=== PATIENT | female | born 1985 | race Caucasian/White ===

== ENCOUNTER → 2017-02-16 16:55 | Outpatient (REF) | payer BC, SELFPAY | LOC: LAB 16:55 | PROVIDERS: Visit Provider Nurse Practitioner Obstetrics & Gynecology | DX: Z34.90 Encounter for supervision of normal pregnancy, unspecified, unspecified trimester (principal) | CPT/HCPCS: 86403 ==

== ENCOUNTER 2017-03-18 03:47 | Inpatient (IN) | payer BC, SELFPAY ==
[2017-03-18 03:15] VITALS: BP 128/85; PULSE 70; RESP 17; TEMP 36.7; O2SAT 97; BMI 24.1
--- NOTE | 2017-03-18 04:00 | US_ITS ---
US OB limited position COMPARISON: Ultrasound complete 11/02/2016 HISTORY: 39 weeks gestation with vaginal bleeding TECHNIQUE: Ultrasound examination for position FINDINGS: The fetus is in cephalic presentation. The heart rate is 146 bpm. The placenta is fundal. With scattered placental calcification is noted. A three-vessel cord is identified. Note age measurements were obtained. The cervix is not well seen but appears be closed. IMPRESSION: Cephalic position as noted
[2017-03-18 04:16] LABS: Microscopic, Urine URINE MICROSCOPIC (MICROSCOPIC)
[2017-03-18 04:16] LABS: Basophils % 0.2 % (0.1-2.0); Eosinophils # 0.1 K/mm3 (0.0-0.4); Eosinophils % 1.4 % (0.1-12.0); Hematocrit 39.3 % (37.0-47.0); Hemoglobin 12.8 g/dL (12.2-16.2); Lymphocytes # 2.1 K/mm3 (0.7-4.5); Lymphocytes % 36.3 K/mm3 (10-50); Mean Corpuscular HGB Conc 32.7 g/dL (31.8-35.4); Mean Corpuscular Hemoglobin 32.8 pg (27.0-31.2); Mean Corpuscular Volume 100.2 fl (81-99); Mean Platelet Volume 9.9 fl (7.4-10.4); Monocytes # 0.3 K/mm3 (0.1-1.0); Neutrophils # 3.2 K/mm3 (1.8-7.8); Neutrophils % 56.1 % (37.0-80.0); Platelet Count 142 K/mm3 (142-424); Red Blood Count 3.92 M/mm3 (4.20-5.40); Red Cell Distribution Width 12.8 % (11.5-17.5); White Blood Count 5.8 K/mm3 (4.8-10.8)
[2017-03-18 04:22] LABS: Appearance,Urine CLEAR (Clear); Bilirubin,Urine Negative (Negative); Blood, Urine 3+ (Negative); Color,Urine YELLOW (Yellow); Glucose,Urine (UA) Negative (Negative); Ketones,Urine Negative (Negative); Leukocyte Esterase,Urine Negative (Negative); Nitrate,Urine Negative (Negative); PH,Urine 6.5 (5.0-8.5); Protein,Urine Negative (Negative); Specific Gravity, Urine 1.015 (1.005-1.030); Urobilinogen,Urine 0.2 EU/dl (0.2)
[2017-03-18 04:23] LABS: RBC,Urine 20-50 #/hpf (0-3)
[2017-03-18 07:30] VITALS: BP 112/65; PULSE 56; RESP 16; TEMP 36.5; O2SAT 99
--- NOTE | 2017-03-18 09:16 | P.HP_ITS ---
OB - H&P: HPI Antepartum - History of Present Illness Chief complaint: Occasional contractions and vaginal bleeding - History of Present Criteria for establishing EDC:: LMP confirmed by 1st trimester US care: good care Ultrasounds: normal 1st trimester US, normal mid trimester US Obstetrical complications: none Planning to breastfeed?: Yes - Labs Blood type: A (+) positive Rubella: immune RPR/VDRL: nonreactive GBS status: negative [facility]H History I have reviewed the patient's past medical history: Yes Other Medical History: Reports: Thyroid Disease Other Surgeries: Yes: No Previous Surgery Amputation: No Fractures: No - *Social History Smoking Status: Never smoker Alcohol Intake: never Substance Use Type: denies use *Family Hx:: Unable to obtain, Cancer, Diabetes, Hypertension, Hyperlipidemia, Asthma, Stroke : 3 Para: 2 Review of Systems - Review of Systems Review of systems:: pertinent systems reviewed and negative unless documented below Meds Home Medications Medication Instructions Recorded Confirmed Type docusate sodium 100 mg capsule 100 mg PO QDAY 02/22/17 History ferrous sulfate 325 mg (65 mg 325 mg PO ONCE tab 02/22/17 History iron) tablet levothyroxine 88 mcg tablet 88 mcg PO ONCE tab 02/22/17 History vit no.95-ferrous tab PO 02/22/17 History fumarate 28 mg-folic acid 800 mcg tablet Allergies Allergy/AdvReac Type Severity Reaction Status Date / Time No Known Allergies Allergy Unverified 03/14/17 15:59 OB - H&P: Exam - Physical Exam Vital signs: Temp Pulse Resp BP Pulse Ox 98.0 F 70 17 128/85 97 03/18/17 03:15 03/18/17 03:15 03/18/17 03:15 03/18/17 03:15 03/18/17 03:15 - Constitutional no acute distress OB - Results - Labs Labs: Short CBC 03/18/17 Range/Units 03:55 WBC 5.8 (4.8-10.8) K/mm3 Hgb 12.8 (12.2-16.2) g/dL Hct 39.3 (37.0-47.0) % Plt Count 142 (142-424) K/mm3 Urine 03/18/17 Range/Units 03:30 Urine Color Yellow (Yellow) Urine Appearance Clear (Clear) Urine pH 6.5 (5.0-8.5) Ur Specific [place] 1.015 (1.005-1.030) Urine Protein Negative (Negative) Urine Glucose (UA) Negative (Negative) OB - A/P Antepartum - Additional Plan Plan: expectant management (She had some bleeding at home this morning and we will go ahead and augment her labor.), induction Planning to breastfeed?: Yes
--- NOTE | 2017-03-18 09:22 | P.PN_ITS ---
[facility] Anesthesia Checklist - Patient Identification Patient Identification: Arm Band, Verbal (Name & ) - Structural Data Admitted From: Inpatient Planned Operative Procedure/s: labour epidural Consent for Planned Operative Procedure(s) Verified: Yes Verified Documents: Surgical Consent - NPO Status Verified Time NPO: 00:00 - Chart Verification Results Verified: CBC, BMP - Additional verifications Patient : Yes Anesthesia Reactions: No Hx Blood Transfusions: No Blood Transfusion Reaction: No Cephalosporin Allergy: No Previous Colonoscopy: No - Cardiovascular Assessment Heart Sounds: S1 & S2 Pulse Strength: Baseline Pulse Rhythm: Regular Peripheral Edema: No - Airway Assessment C-Spine Mobility Assessed: Yes TMJ Mobility Assessed: Yes Dentition: Good Dentition - Neurological Assessment Level of Consciousness: Awake, Alert, Appropriate Hx Seizures: No Numbness or tingling in extremities: No - Anesthesia Plan Anesthesia Risk discussed: Yes Anesthesia Plan: Verified ASA Class: II Anesthesia Type: Epidural [facility] Anesthesia HX I have reviewed the patient's past medical history: Yes Other Medical History: Reports: Thyroid Disease Other Surgeries: Yes: No Previous Surgery Amputation: No Fractures: No *Family Hx:: Unable to obtain, Cancer, Diabetes, Hypertension, Hyperlipidemia, Asthma, Stroke
--- NOTE | 2017-03-18 12:29 | HMH.DN ---
- Delivery Note Delivery Date:: 03/18/17 Delivery Time:: 12:18 Anesthesia Type: Epidural Was labor medically induced?: No Induction method: none Gestational age (weeks): 39 delivered prior to 39 weeks?: No Gender: Female at 1 minute: 8 at 5 minutes: 9 Delivery Procedure:: She is a 31-year-old 3 para 2 who is 39 and 6 weeks gestational age. She had some contractions overnight as well as bleeding. When she went to the bathroom she passed golf ball size clot. She was admitted and observed overnight. She was having irregular contractions. An ultrasound showed that there was no evidence of abruption. She was started on IV oxytocin had her membranes ruptured. Under labor epidural she progressed to full dilation and delivered spontaneously a liveborn female child at 12:18 PM in the afternoon of March 18, 2016. On deliver the head there was a loose nuchal cord which was easily reduced. This was followed by the anterior shoulder and the rest of the 's body atraumatically. The oropharynx and nasopharynx were bulb suctioned. The baby cried spontaneously. We allowed the cord to continue to pulsate for approximately 1 minute and then doubly clamped and cut the cord. The baby was then placed on the mother's abdomen for further care. The nurses assigned Apgars of 8 at 1 minute and 9 at 5 minutes. We then obtained cord blood as well as cord pH. Using gentle traction on the cord and countertraction on the fundus I was able to easily deliver the placenta intact. It had a normal three-vessel cord. There were no perineal or vaginal lacerations. She has a positive blood, she is rubella immune and was group A streptococcus negative. She plans to breast-feed. Her rn angiography is Dr. Swenson. Estimated blood loss was approximately 400 cc. Placental Delivery Description: Spontaneous, Normal Configuration
--- NOTE | 2017-03-18 12:32 | P.PCN_ITS ---
- Delivery Note Delivery Date:: 03/18/17 Delivery Time:: 12:18 Anesthesia Type: Epidural Was labor medically induced?: No Induction method: none Gestational age (weeks): 39 delivered prior to 39 weeks?: No Gender: Female at 1 minute: 8 at 5 minutes: 9 Delivery Procedure:: She is a 31-year-old 3 para 2 who is 39 and 6 weeks gestational age. She had some contractions overnight as well as bleeding. When she went to the bathroom she passed golf ball size clot. She was admitted and observed overnight. She was having irregular contractions. An ultrasound showed that there was no evidence of abruption. She was started on IV oxytocin had her membranes ruptured. Under labor epidural she progressed to full dilation and delivered spontaneously a liveborn female child at 12:18 PM in the afternoon of March 18, 2016. On deliver the head there was a loose nuchal cord which was easily reduced. This was followed by the anterior shoulder and the rest of the ' s body atraumatically. The oropharynx and nasopharynx were bulb suctioned. The baby cried spontaneously. We allowed the cord to continue to pulsate for approximately 1 minute and then doubly clamped and cut the cord. The baby was then placed on the mother's abdomen for further care. The nurses assigned Apgars of 8 at 1 minute and 9 at 5 minutes. We then obtained cord blood as well as cord pH. Using gentle traction on the cord and countertraction on the fundus I was able to easily deliver the placenta intact. It had a normal three-vessel cord. There were no perineal or vaginal lacerations. She has a positive blood, she is rubella immune and was group A streptococcus negative. She plans to breast-feed. Her framing manager is Dr. Swenson. Estimated blood loss was approximately 400 cc. Placental Delivery Description: Spontaneous, Normal Configuration
[2017-03-18 12:43] LABS: Cord Blood PH 7.23 (7.35-7.45)
[2017-03-19 07:06] LABS: Hematocrit 35.4 % (37.0-47.0); Hemoglobin 11.5 g/dL (12.2-16.2)
--- NOTE | 2017-03-19 09:20 | HMH.ACPN2 ---
Internal Medicine - PN: Subj *Date: 03/19/17 *Time: 09:20 Interval history: She is doing well this morning. She is eating and drinking and ambulating. She is breast-feeding. Her lochia is normal. Exam Vital signs and Labs for Last 24 Hours: Temp Pulse Resp BP Pulse Ox 97.7 F 56 L 16 112/65 99 03/18/17 07:30 03/18/17 07:30 03/18/17 07:30 03/18/17 07:30 03/18/17 07:30 Laboratory Results - last 24 hr 03/18/17 12:18: Cord ABG pH 7.23 L* 03/19/17 06:25: Hgb 11.5 L, Hct 35.4 L I & O for Last 24 hours: Intake & Output 03/16/17 03/17/17 03/18/17 03/19/17 11:59 11:59 11:59 11:59 Weight 136 lb 4 oz - Constitutional no acute distress Assessment and Plan - Assessment and plan all Dx Assessment and Plan for all problems:: She is doing very well this morning. We will plan to send her home tomorrow.
--- NOTE | 2017-03-20 07:25 | HMH.DCSUM ---
General - General Admission date: 03/17/17 Discharge date: 03/20/17 HPI HPI: She is a 31-year-old 3 now para 3 who is 39 and 6 weeks gestational age. She passed a large clot at home and as result of that came in. She is having a few contractions. She had an ultrasound that was negative for abruption but given the fact that she was having a few contractions and she was at term we elected to augment her labor. Objective Vital signs: Temp Pulse Resp BP Pulse Ox 97.7 F 56 L 16 112/65 99 03/18/17 07:30 03/18/17 07:30 03/18/17 07:30 03/18/17 07:30 03/18/17 07:30 no acute distress Hospital Course Hospital Course: She was started on IV oxytocin and had her membranes ruptured. She progressed to full dilation and delivered spontaneously a liveborn female child at 12:18 PM in the afternoon of March 18, 2017. The baby was a liveborn female weighing 8 lbs. 0 oz. and 20 inches long. She had Apgars of 8 at 1 and 9 at 5 minutes. There were no perineal or vaginal lacerations. She has a positive blood, she is rubella immune and is group B streptococcus negative. She is breast-feeding. Her bench chemist Dr. Swenson. She is discharged home to follow-up with me in approximately 2 weeks time. She will continue with her vitamins and iron. She is taking [id number] analgesics. DS: Diagnosis - Discharge Diagnosis (1) Normal delivery Status: Acute Meds Home Medications Medication Instructions Recorded Confirmed Type docusate sodium 100 mg capsule 100 mg PO DAILY 02/22/17 03/18/17 History ferrous sulfate 325 mg (65 mg 325 mg PO DAILY tab 02/22/17 03/18/17 History iron) tablet levothyroxine 88 mcg tablet 88 mcg PO DAILY tab 02/22/17 03/18/17 History vit no.95-ferrous 1 tab PO DAILY 02/22/17 03/18/17 History fumarate 28 mg-folic acid 800 mcg tablet Allergies Allergy/AdvReac Type Severity Reaction Status Date / Time No Known Allergies Allergy Unverified 03/14/17 15:59 Discharge Plan - Patient Discharge Instructions ACTIVITY: Continue current activity, No heavy lifting DIET: continue same diet - Follow up Plan Disposition: Home, Self-Fdc Medications: Home Medications Medication Instructions Recorded Confirmed Type docusate sodium 100 mg capsule 100 mg PO DAILY 02/22/17 03/18/17 History ferrous sulfate 325 mg (65 mg 325 mg PO DAILY tab 02/22/17 03/18/17 History iron) tablet levothyroxine 88 mcg tablet 88 mcg PO DAILY tab 02/22/17 03/18/17 History vit no.95-ferrous 1 tab PO DAILY 02/22/17 03/18/17 History fumarate 28 mg-folic acid 800 mcg tablet Prescriptions/Medication Reconciliation: Continue ferrous sulfate 325 mg (65 mg iron) tablet 325 mg PO DAILY tab levothyroxine 88 mcg tablet 88 mcg PO DAILY tab docusate sodium 100 mg capsule 100 mg PO DAILY No Action vit no.95-ferrous fumarate 28 mg-folic acid 800 mcg tablet 1 tab PO DAILY
--- NOTE | 2017-03-20 07:28 | P.DS_ITS ---
General - General Admission date: 03/17/17 Discharge date: 03/20/17 HPI HPI: She is a 31-year-old 3 now para 3 who is 39 and 6 weeks gestational age. She passed a large clot at home and as result of that came in. She is having a few contractions. She had an ultrasound that was negative for abruption but given the fact that she was having a few contractions and she was at term we elected to augment her labor. Objective Vital signs: Temp Pulse Resp BP Pulse Ox 97.7 F 56 L 16 112/65 99 03/18/17 07:30 03/18/17 07:30 03/18/17 07:30 03/18/17 07:30 03/18/17 07:30 no acute distress Hospital Course Hospital Course: She was started on IV oxytocin and had her membranes ruptured. She progressed to full dilation and delivered spontaneously a liveborn female child at 12:18 PM in the afternoon of March 18, 2017. The baby was a liveborn female weighing 8 lbs. 0 oz. and 20 inches long. She had Apgars of 8 at 1 and 9 at 5 minutes. There were no perineal or vaginal lacerations. She has a positive blood, she is rubella immune and is group B streptococcus negative. She is breast-feeding. Her gun perforator Dr. Swenson. She is discharged home to follow-up with me in approximately 2 weeks time. She will continue with her vitamins and iron. She is taking over-the- counter analgesics. DS: Diagnosis - Discharge Diagnosis (1) Normal delivery Status: Acute Meds Home Medications Medication Instructions Recorded Confirmed Type docusate sodium 100 mg capsule 100 mg PO DAILY 02/22/17 03/18/17 History ferrous sulfate 325 mg (65 mg 325 mg PO DAILY tab 02/22/17 03/18/17 History iron) tablet levothyroxine 88 mcg tablet 88 mcg PO DAILY tab 02/22/17 03/18/17 History vit no.95-ferrous 1 tab PO DAILY 02/22/17 03/18/17 History fumarate 28 mg-folic acid 800 mcg tablet Allergies Allergy/AdvReac Type Severity Reaction Status Date / Time No Known Allergies Allergy Unverified 03/14/17 15:59 Discharge Plan - Patient Discharge Instructions ACTIVITY: Continue current activity, No heavy lifting DIET: continue same diet - Follow up Plan Disposition: Home, Self-Correction Medications: Home Medications Medication Instructions Recorded Confirmed Type docusate sodium 100 mg capsule 100 mg PO DAILY 02/22/17 03/18/17 History ferrous sulfate 325 mg (65 mg 325 mg PO DAILY tab 02/22/17 03/18/17 History iron) tablet levothyroxine 88 mcg tablet 88 mcg PO DAILY tab 02/22/17 03/18/17 History vit no.95-ferrous 1 tab PO DAILY 02/22/17 03/18/17 History fumarate 28 mg-folic acid 800 mcg tablet Prescriptions/Medication Reconciliation: Continue ferrous sulfate 325 mg (65 mg iron) tablet 325 mg PO DAILY tab levothyroxine 88 mcg tablet 88 mcg PO DAILY tab docusate sodium 100 mg capsule 100 mg PO DAILY No Action vit no.95-ferrous fumarate 28 mg-folic acid 800 mcg tablet 1 tab PO DAILY
== END 2017-03-20 09:55 | disposition home or self-care (01) | DRG 775 ==
LOC: OBOUT 03:51
PROVIDERS: Admitting Provider Obstetrics & Gynecology; PCP Internal Medicine Adolescent Medicine; Referring Provider Nurse Practitioner Obstetrics & Gynecology; Visit Provider Nurse Practitioner Obstetrics & Gynecology
DX: O69.81X0 Labor and delivery complicated by cord around neck, without compression, not applicable or unspecified (principal); Z37.0 Single live birth; Z3A.39 39 weeks gestation of pregnancy
CPT/HCPCS: 59409; 59025; 76815; 81001; 82800; 85014; 85018; 85025; 86850; 94761

== ENCOUNTER → 2017-10-18 08:30 | Outpatient (CLI) | payer OTHER, SELFPAY ==
[2017-10-18 10:00] LABS: Free T4 (Free Thyroxine) 0.95 ng/dl (0.76-1.46); Thyroid Stimulating Hormone 5.74 uIU/ml (0.358-3.740)
== END ==
PROVIDERS: PCP Nurse Practitioner Family; Visit Provider Internal Medicine Adolescent Medicine
DX: E06.3 Autoimmune thyroiditis (principal); E03.8 Other specified hypothyroidism
CPT/HCPCS: 36415; 84439; 84443

== ENCOUNTER → 2018-01-11 08:45 | Outpatient (CLI) | payer OTHER, SELFPAY ==
[2018-01-11 10:30] LABS: Free T4 (Free Thyroxine) 0.98 ng/dl (0.76-1.46); Thyroid Stimulating Hormone 3.43 uIU/ml (0.358-3.740)
== END ==
PROVIDERS: Visit Provider Nurse Practitioner Family
DX: E03.8 Other specified hypothyroidism (principal)
CPT/HCPCS: 36415; 84439; 84443

== ENCOUNTER → 2018-07-12 09:52 | Outpatient (CLI) | payer OTHER, SELFPAY ==
[2018-07-12 12:28] LABS: Free Thyroxine Index 3.7 ug/dL (5.93-13.13); T4 (Thyroxine) 12.3 ug/dl (4.7-13.3); Thyroid Stimulating Hormone 1.99 uIU/ml (0.358-3.740); Triiodothryronine (T3) Uptake 30 % (31-39)
== END ==
PROVIDERS: Visit Provider Nurse Practitioner Obstetrics & Gynecology
DX: Z01.419 Encounter for gynecological examination (general) (routine) without abnormal findings (principal)
CPT/HCPCS: 36415; 84436; 84443; 84479

== ENCOUNTER → 2019-04-16 16:03 | Outpatient (CLI) | payer OTHER, SELFPAY ==
[2019-04-16 17:21] LABS: Basophils % 0.5 % (0.1-2.0); Eosinophils # 0.1 K/mm3 (0.0-0.4); Eosinophils % 3.4 % (0.1-12.0); Hematocrit 55.1 % (37.0-47.0); Hemoglobin 17.8 g/dL (12.2-16.2); Lymphocytes # 1.6 K/mm3 (0.7-4.5); Lymphocytes % 39.7 % (10-50); Mean Corpuscular HGB Conc 32.3 g/dL (31.8-35.4); Mean Corpuscular Hemoglobin 31.4 pg (27.0-31.2); Mean Corpuscular Volume 97.2 fl (81-99); Mean Platelet Volume 8.1 fl (7.4-10.4); Monocytes # 0.1 K/mm3 (0.1-1.0); Monocytes % 3.4 % (1.7-9.3); Neutrophils # 2.1 K/mm3 (1.8-7.8); Platelet Count 161 K/mm3 (142-424); Red Blood Count 5.67 M/mm3 (4.20-5.40); Red Cell Distribution Width 12.7 % (11.5-17.5); White Blood Count 3.9 K/mm3 (4.8-10.8)
[2019-04-18 08:29] LABS: HIV Screen 4th Generation wRfx Non Reactive (Non Reactive)
[2019-04-18 12:18] LABS: Rapid Plasma Reagin Ab Titer Non Reactive (NonRea<1:1); Rubella Antibodies, IgG 4.44 index (Immune >0.99)
[2019-04-19 08:57] LABS: Hepatitis B Surface Antigen Negative (Negative); Hepatitis C Antibody <0.1 s/co ratio (0.0-0.9)
== END ==
PROVIDERS: Visit Provider Nurse Practitioner Obstetrics & Gynecology
DX: Z34.90 Encounter for supervision of normal pregnancy, unspecified, unspecified trimester (principal)
CPT/HCPCS: 36415; 85025; 86592; 86703; 86762; 86850; 87340; 87380; G0432

== ENCOUNTER → 2019-04-19 09:59 | Outpatient (CLI) | payer OTHER, SELFPAY ==
--- NOTE | 2019-04-19 09:59 | US_ITS ---
PROCEDURE: US OB TRANSVAGINAL CLINICAL INDICATION: US OB T/V for Dates before 12 weeks COMPARISON: OBLM US OB limited position from 03/18/2017 FINDINGS: An intrauterine gestational sac is present with a pole with a crown-rump length of 2.47cm correlating to gestational age of 9weeks 2days. heart tones are present with an FHR of 167bpm. Yolk sac is noted. No adnexal mass. There is bilateral ovarian blood flow and there is a small amount fluid in the cul-de-sac. IMPRESSION: Live IUP at 9 weeks 2 days. Estimated due date by Ultrasound is 11/20/2019 Dictated by: Wellington Washburn MD 04/19/2019 13:45 Electronically signed by Wellington Washburn MD in [place] 04/19/2019 13:45
== END ==
PROVIDERS: PCP Nurse Practitioner Family; Visit Provider Nurse Practitioner Obstetrics & Gynecology
DX: O26.841 Uterine size-date discrepancy, first trimester (principal)
CPT/HCPCS: 76817

== ENCOUNTER → 2019-07-02 12:49 | Outpatient (CLI) | payer BC, SELFPAY ==
--- NOTE | 2019-07-02 12:49 | US_ITS ---
PROCEDURE: US OB /MATERNAL DETAIL CLINICAL INDICATION: 20 weeks gestation The rated COMPARISON: US OB TRANSVAGINAL from 04/19/2019 FINDINGS: There is a single live fetus which is in cephalic presentation. The placenta is posterior and grade 1. The cervix is closed and measures 4 cm transabdominal Complete survey performed and was unremarkable on the submitted images as in PACS. No discrete anomalies identified on survey imaging by technologist. Active fetus. Three-vessel cord with satisfactory umbilical cord insertion. 4- chamber heart noted. Survey of brain & ventricles Unremarkable. Face and neck survey unremarkable. Diaphragm and chest views unremarkable. Abdomen: Both kidneys noted and unremarkable. Stomach noted and satisfactory. Spine: Survey of the spine satisfactory with no anomalies identified nor imaged. Both arms and legs noted. Amniotic Fluid: Adequate. Maternal adnexa: No significant findings. Measurements: Average ultrasound age 19weeks 6days. Gestational Age 19weeks 6days Estimated due date by ultrasound age 1011/20/2019. Estimated weight 319g BPD = 20weeks OFD = 20 weeks 4 days HC = 19weeks 4days AC = 20weeks FL = 19weeks 6days Growth Percentile= 47% Heart Rate = 143bpm Cerebellum = 20weeks 1day Humerus = 20weeks 4days HC/AC is 1.15 CI is 0.76 FL/BPD is 0.68 FL/AC is 0.22 IMPRESSION: There is a single live fetus which is in cephalic presentation with an average ultrasound age of 19 weeks and 6 days. All parameters correlate with no obvious anomalies. Please see above for detail Dictated by: Wellington Washburn MD 07/03/2019 11:49 Electronically signed by Wellington Washburn MD in [place] 07/03/2019 11:49
== END ==
PROVIDERS: PCP Nurse Practitioner Family; Visit Provider Nurse Practitioner Obstetrics & Gynecology
DX: Z34.90 Encounter for supervision of normal pregnancy, unspecified, unspecified trimester (principal); Z3A.20 20 weeks gestation of pregnancy
CPT/HCPCS: 76811

== ENCOUNTER → 2019-08-20 11:32 | Outpatient (CLI) | payer BC, SELFPAY ==
[2019-08-20 12:57] LABS: Free T4 (Free Thyroxine) 1.02 ng/dl (0.78-2.19)
[2019-08-20 13:10] LABS: Thyroid Stimulating Hormone 2.01 uIU/mL (0.465-4.68)
[2019-08-22 08:58] LABS: Chloride 102 mmol/L (98-107); Potassium 4.6 mmoL/L (3.5-5.1); Sodium 135 mmol/L (136-145)
[2019-08-22 09:01] LABS: Anion Gap 9.6 mEq/L (5-15); Blood Urea Nitrogen 12 mg/dl (7-17); Calcium 9.1 mg/dl (8.4-10.2); Carbon Dioxide 28 mmol/L (22.0-30.0); Estimated Glomerular Filt Rate 141 ml/min (>60); GFR (African American) 171 ML/MIN (>60); Glucose 79 mg/dl (74-100)
== END ==
PROVIDERS: Visit Provider Internal Medicine Adolescent Medicine
DX: R00.2 Palpitations (principal); E03.8 Other specified hypothyroidism
CPT/HCPCS: 36415; 80048; 84439; 84443

== ENCOUNTER → 2019-09-09 07:11 | Outpatient (CLI) | payer BC, SELFPAY ==
[2019-09-09 11:32] LABS: Glucose 1 Hour 119 mg/dL (74-100); Glucose,Fasting 84 mg/dl (74-100)
== END ==
PROVIDERS: Visit Provider Nurse Practitioner Obstetrics & Gynecology
DX: Z34.90 Encounter for supervision of normal pregnancy, unspecified, unspecified trimester (principal)
CPT/HCPCS: 36415; 82951

== ENCOUNTER → 2019-10-17 10:56 | Outpatient (CLI) | payer BC, SELFPAY | PROVIDERS: PCP Nurse Practitioner Family; Visit Provider Internal Medicine Cardiovascular Disease | DX: R00.2 Palpitations (principal) | CPT/HCPCS: 93225 ==

== ENCOUNTER → 2019-10-18 15:08 | Outpatient (CLI) | payer BC, SELFPAY ==
--- NOTE | 2019-10-18 15:08 | CA_ITS ---
APPROVED REPORT EXAM: Comprehensive 2D, Doppler, and color-flow Echocardiogram Experimental Aircraft Mechanic: Rosa Maria Don RVT Ht: 5 ft 3 in Wt: 129lbs BSA: 1.60 BP: 121/73 mmHg Indications: PALPS,SVT,35 WKS PREG 2D Dimensions LVOT 1.76 cm (M/F) 1.5-2.5 M-Mode Dimensions RVDd 2.11 cm (0.9-2.6) LVDd 4.49 cm (3.5-5.7) LVDs 2.81 cm (3.5-5.7) IVSd 0.80 cm (0.6-1.1) PWd 0.70 cm (0.6-1.1) EF (Teich) 67.60% FS 37.40% EDV (Teich) 92.00 mL ESV (Teich) 29.80 mL LV Diastology E/A Ratio 2.70 Mitral Valve MV A Velocity 47.00 (40-130 cm/s) Left Ventricle Left atrium is normal size, left ventricle is normal size, there is no concentric left ventricular hypertrophy, visually estimated ejection fraction 55% with no regional wall motion abnormality. Right Ventricle Right atrium and right ventricle are normal size and contractility. Aortic Valve Aortic valve is grossly normal, there is no aortic stenosis or aortic insufficiency. Mitral Valve Mitral valve is grossly normal, there is trace mitral regurgitation. Tricuspid Valve Tricuspid valve grossly normal, there is trace tricuspid regurgitation, calculated right ventricular systolic pressure is within normal range. Pulmonic Valve Pulmonic valve is grossly normal, there is mild pulmonic insufficiency. Great Vessels Aortic root is normal size. Pericardium No significant pericardial effusion noted. Conclusion 1. Normal left ventricular size, preserved left ventricular systolic function, visually estimated ejection fraction 55% with no regional wall motion abnormality, diastolic parameters are within normal range. 2. Trace mitral and tricuspid regurgitation, calculated right ventricular systolic pressure within normal range. 3. No significant pericardial effusion noted. Electronically signed by : Omi Elizabeth, 10/18/2019 19:21:03
== END ==
PROVIDERS: PCP Nurse Practitioner Family; Visit Provider Internal Medicine Cardiovascular Disease
DX: R00.2 Palpitations (principal)
CPT/HCPCS: 93306

== ENCOUNTER → 2019-10-22 13:28 | Outpatient (CLI) | payer BC, SELFPAY ==
--- NOTE | 2019-10-22 13:28 | US_ITS ---
PROCEDURE: US OB BIOPHYSICAL PROFILE CLINICAL INDICATION: SGA Small for gestational age TECHNIQUE: Transabdominal scanning FINDINGS: The following parameters are obtained: Average ultrasound age is Average 35weeks 3days Estimated due date by ultrasound is 11/23/2019. Estimated weight is 2,717g. This is 43 percentile. The fetus is in cephalic presentation. The cervix is closed measuring 4 cm. BPD: 8.65cm OFD: 10.99cm HC: 31.1cm AC: 31.8cm FL: 7cm heart rate: 134bpm bpm. HC/AC: 0.98 Cephalic index: 0.79 FL/BPD: 0.81 FL/AC: 0.22 Amniotic fluid index: 10.41cm Qualitative AFV: 2 breathing movements: 2 Gross body movements: 2 Tone: 2 Biophysical profile score: 8 Doppler evaluation of the umbilical artery: SD ratio: Resistive index: No obvious anomalies evident. Placenta: Posterior and grade 1 Cervix: Closed measuring 4 cm IMPRESSION: Single live IUP in cephalic presentation with an average ultrasound age 35 weeks and 3 days. All parameters correlate. Estimated weight is 2117 g which is 43 percentile. Biophysical profile is 8 of 8 with normal amniotic fluid index of 10.4 cm. Please see above for detail Dictated by: Wellington Washburn MD 10/23/2019 04:26 Wellington Washburn MD in [place] 10/23/2019 04:26
== END ==
PROVIDERS: PCP Nurse Practitioner Family; Visit Provider Nurse Practitioner Obstetrics & Gynecology
DX: O36.5990 Maternal care for other known or suspected poor fetal growth, unspecified trimester, not applicable or unspecified (principal)
CPT/HCPCS: 76816; 76819

== ENCOUNTER → 2019-10-29 17:13 | Outpatient (CLI) | payer BC, SELFPAY | PROVIDERS: Visit Provider Nurse Practitioner Obstetrics & Gynecology | DX: Z34.90 Encounter for supervision of normal pregnancy, unspecified, unspecified trimester (principal); Z3A.37 37 weeks gestation of pregnancy | CPT/HCPCS: 86403 ==

== ENCOUNTER → 2019-11-07 13:27 | Outpatient (CLI) | payer BC, SELFPAY ==
--- NOTE | 2019-11-07 13:27 | US_ITS ---
PROCEDURE: US OB BIOPHYSICAL PROFILE CLINICAL INDICATION: SGA Small for gestational age TECHNIQUE: Transabdominal imaging FINDINGS: The following parameters are obtained: Average ultrasound age is Average 36weeks 5days Estimated due date by ultrasound is 11/30/2019. Estimated weight is 3,059g. This is 31 percentile BPD: Thirty-six weeks 3 days OFD: 37 weeks 2 days HC: 36 weeks 0 days AC: 37 weeks 3 days FL: 36 weeks 6 days heart rate: 134bpm bpm. HC/AC: 0.96 Cephalic index: 0.8 FL/BPD: 0.8 FL/AC: 0.21 Amniotic fluid index: 9.03cm Qualitative AFV: 2 breathing movements: 2 Gross body movements: 2 Tone: 2 Biophysical profile score: 8 Fetus is in cephalic presentation. heart and body motion noted. The cervix is closed and measures 3 cm. heart rate is 130 beats per minute. The placenta is anterior and lateral and grade 2. breathing motion noted. IMPRESSION: There is a single live fetus which is in cephalic presentation with an average ultrasound age 36 weeks and 5 days. Estimated weight is 3059 g which is 31st percentile. All parameters correlate. Amniotic fluid index is lower normal at 9 cm. Biophysical profile is 8 of 8 Placenta is anterior lateral and grade 2 Dictated by: Wellington Washburn MD 11/09/2019 10:16 Wellington Washburn MD in [place] 11/09/2019 10:16
== END ==
PROVIDERS: PCP Nurse Practitioner Family; Visit Provider Nurse Practitioner Obstetrics & Gynecology
DX: O36.5990 Maternal care for other known or suspected poor fetal growth, unspecified trimester, not applicable or unspecified (principal)
CPT/HCPCS: 76816; 76819

== ENCOUNTER 2019-11-19 03:45 | Inpatient (IN) | payer BC, SELFPAY ==
[2019-11-19 03:50] VITALS: BP 130/85; PULSE 69; RESP 18; TEMP 36.7; O2SAT 98; BMI 23.2
[2019-11-19 04:24] LABS: Microscopic, Urine URINE MICROSCOPIC (MICROSCOPIC)
[2019-11-19 04:29] LABS: Appearance,Urine CLEAR (Clear); Bilirubin,Urine Negative (Negative); Blood, Urine Negative (Negative); Color,Urine YELLOW (Yellow); Glucose,Urine (UA) Negative (Negative); Ketones,Urine Negative (Negative); Leukocyte Esterase,Urine Negative (Negative); Nitrate,Urine Negative (Negative); PH,Urine 6.5 (5.0-8.5); Protein,Urine Negative (Negative); Urobilinogen,Urine 0.2 EU/dl (0.2)
[2019-11-19 04:39] LABS: Amphetamine/Metha Screen,Urine Negative ng/ml (<1000)
[2019-11-19 04:40] LABS: Bacteria,Urine 1+ /lpf; Barbiturates Screen,Urine Negative ng/ml (<200)
[2019-11-19 04:41] LABS: Benzodiazepines Screen,Urine Negative ng/ml (<200); Cannabinoid Screen,Urine Negative ng/ml (<50)
[2019-11-19 04:42] LABS: Cocaine Screen,Urine Negative ng/ml (<300)
[2019-11-19 04:43] LABS: Methadone Screen,Urine Negative ng/ml (<300); Opiate Screen,Urine Negative ng/ml (<300)
[2019-11-19 04:44] LABS: Phencyclidine Screen,Urine Negative ng/ml (<25)
[2019-11-19 05:59] LABS: Eosinophils # 0.1 K/mm3 (0.0-0.4); Monocytes % 5.3 % (1.7-9.3)
[2019-11-19 06:15] VITALS: BP 111/76; PULSE 76; RESP 18; TEMP 36.7; O2SAT 98
[2019-11-19 06:33] LABS: Coronavirus 19 IgG Antibody Positive (Negative); Coronavirus 19 IgM Antibody Positive (Negative)
--- NOTE | 2019-11-19 06:53 | HMH.DN ---
- Delivery Note Delivery Date:: 11/19/19 Delivery Time:: 06:41 Anesthesia Type: None Was labor medically induced?: No Induction method: none Gestational age (weeks): 39 delivered prior to 39 weeks?: No Justification for early elective delivery:: Active Labor Infant Gender: Female at 1 minute: 8 at 5 minutes: 8 Delivery Procedure:: She is a 34-year-old 4 para 3 who was 39 and 6 weeks gestational age. She came in in active labor and was found to be 3 to 4 cm. She subsequently progressed to full dilation and delivered spontaneously a liveborn female child at 6:41 AM on the morning of November 19, 2019. On deliver the head the anterior shoulder then rapidly delivered followed by the rest the infant's body atraumatically. The oropharynx and nasopharynx were bulb suction. The baby was stimulated and cried. She was quite vigorous. We allowed the cord to continue to pulsate for approximately 1 minute. The cord was then doubly clamped and cut and the was placed on the mother's abdomen for further care. The nurses assigned Apgars of 8 at 1 minute and 8 at 5 minutes. We then obtained cord blood as well as cord pH. This is currently pending. She received IV oxytocin and using gentle traction on the cord and countertraction on the fundus I was able to easily deliver the placenta intact. Had a normal three-vessel cord. There were no perineal or vaginal lacerations. She has a positive blood, she is rubella immune and was group B streptococcus negative. She was COVID positive. Her estimated blood loss was less than 100 cc. Placental Delivery Description: Spontaneous
--- NOTE | 2019-11-19 06:57 | HMH.OBAPHP ---
OB - H&P: HPI Antepartum - History of Present Illness Chief complaint: Regular contractions History of present illness: She is a 34-year-old 4 para 3 who was 39 and 6 weeks gestational age. She came in with regular contractions. She was seen in my office yesterday and had her membranes stripped. - History of Present Criteria for establishing EDC:: LMP confirmed by 1st trimester US care: good care Ultrasounds: normal 1st trimester US, normal mid trimester US Obstetrical complications: none Medical complications: none - Labs Blood type: A (+) positive Rubella: immune RPR/VDRL: nonreactive GBS status: negative HBsAG: negative Narrative: She had a positive COVID test about 2 weeks ago. She is continued to be positive today. [facility] History I have reviewed the patient's past medical history: Yes Medical History: Reports:: Palpitations Denies:: Anxiety, Asthma, Depression, Diabetes Mellitus Type 1, Seizures *Have you ever received a pneumonia vaccine?: No *Have you received a flu vaccine this season?: No Other Medical History: Reports: Thyroid Disease. Denies: Blood Transfusion Reaction Other Surgeries: Yes: No Previous Surgery. 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: Review of Systems - Review of Systems Review of systems:: pertinent systems reviewed and negative unless documented below Meds Home Medications Medication Instructions Recorded Confirmed Type docusate sodium 100 mg capsule 100 mg PO DAILY 02/22/17 11/18/19 History vit no.95-ferrous 1 tab PO DAILY 02/22/17 11/18/19 History fumarate 28 mg-folic acid 800 mcg tablet ferrous sulfate 325 mg (65 mg 325 mg PO DAILY #30 tab 06/11/19 11/18/19 Rx iron) tablet levothyroxine 112 mcg tablet 112 mcg PO DAILY #30 tab 10/17/19 11/18/19 History Allergies Allergy/AdvReac Type Severity Reaction Status Date / Time No Known Allergies Allergy Verified 10/05/20 10:28 OB - H&P: Exam - Physical Exam Vital signs: Temp Pulse Resp BP Pulse Ox 98.1 F 69 18 130/85 98 11/19/19 03:50 11/19/19 03:50 11/19/19 03:50 11/19/19 03:50 11/19/19 03:50 - Constitutional no acute distress - Routine HEENT Exam Head: Present: normocephalic Eye: Present: EOMI, PERRL ENT: Present: mucous membranes moist - Routine Neck Exam Present: supple, full ROM - Routine Respiratory Exam Absent: accessory muscle use (good air entry bilaterally), respiratory distress, wheezes, crackles - Routine Cardiovascular Exam Present: RRR. Absent: murmur - Routine Abdominal Exam Present: soft, normoactive bowel sounds. Absent: tenderness, distended, guarding - Routine Rectal Exam Patient deferred: visual exam, digital exam - Routine Exam Patient deferred: external exam, groin exam, perineal exam - Routine Extremities Exam Present: full ROM. Absent: cyanosis, edema - Routine Skin Exam Present: intact. Absent: cyanosis - Routine Neurological Exam Present: alert, oriented X3 - Routine Psychiatric Exam Present: normal affect OB - Results - Labs Labs: Short CBC 11/19/19 Range/Units 05:40 WBC 5.6 (4.8-10.8) K/mm3 Hgb 13.0 (12.2-16.2) g/dL Hct 42.1 (37.0-47.0) % Plt Count 152 (142-424) K/mm3 Urine 11/19/19 Range/Units 04:10 Urine Color Yellow (Yellow) Urine Appearance Clear (Clear) Urine pH 6.5 (5.0-8.5) Ur Specific [place] 1.010 (1.005-1.030) Urine Protein Negative (Negative) Urine Glucose (UA) Negative (Negative) OB - A/P An
[2019-11-19 07:09] LABS: Cord Blood PH 7.41 (7.35-7.45)
[2019-11-19 07:15] VITALS: BP 125/73; PULSE 66; RESP 18; TEMP 36.8; O2SAT 98
[2019-11-19 09:25] LABS: White Blood Count 6.9 K/mm3 (4.8-10.8)
[2019-11-19 09:26] LABS: Hematocrit 32.7 % (37.0-47.0); Hemoglobin 12.9 g/dL (12.2-16.2); Mean Corpuscular HGB Conc 39.4 g/dL (31.8-35.4); Mean Corpuscular Hemoglobin 39.4 pg (27.0-31.2); Mean Corpuscular Volume 100.1 fl (81-99); Platelet Count 197 K/mm3 (142-424); Red Blood Count 3.26 M/mm3 (4.20-5.40); Red Cell Distribution Width 12.4 % (11.5-17.5)
[2019-11-19 09:27] LABS: Basophils % 0.3 % (0.1-2.0); Eosinophils % 1.1 % (0.1-12.0); Lymphocytes % 20.6 % (10-50); Mean Platelet Volume 8.8 fl (7.4-10.4); Neutrophils % 72.7 % (37.0-80.0)
[2019-11-19 09:28] LABS: Lymphocytes # 1.4 K/mm3 (0.7-4.5); Monocytes # 0.4 K/mm3 (0.1-1.0)
--- OUTSIDE RECORDS SUMMARY | 2019-11-19 11:38 | XMS_ITS | Continuity of Care Document ---
:1985 Author Organization [facility] Address [address] [place] [address] Phone Care Team Providers Name Role Phone Renny Attending Provider Pancho Alcantar Primary Care Provider Clara Attending Provider Clara Primary Care Provider Allergies, Adverse Reactions, Alerts No known allergies. Medications Medication Status Dose Units Route Sig Qty Days Start End Instruct ions Date Date Levothyroxine Discontinu PO July 12, Oct temb Sodium ed 2019 er 3rd, (Levothyroxine 8:57am 2019 112mcg 10:04am (0.112mg) Tab) 112 mcg tablet Levothyroxine Active 112 MCG PO Daily 12 November Sodium 2019 (Synthroid 10:04am 112mcg
[2019-11-19 12:00] VITALS: BP 120/75; PULSE 72; RESP 18; TEMP 36.4
[2019-11-19 16:18] VITALS: BP 127/79; PULSE 80; RESP 18; TEMP 36.6; O2SAT 98
[2019-11-19 19:49] VITALS: BP 116/77; PULSE 81; RESP 18; TEMP 36.7; O2SAT 99
[2019-11-20 04:30] VITALS: BP 113/70; PULSE 76; RESP 18; TEMP 36.5; O2SAT 97
[2019-11-20 06:36] LABS: Hematocrit 35.4 % (37.0-47.0); Hemoglobin 11.6 g/dL (12.2-16.2)
--- NOTE | 2019-11-20 08:26 | HMH.OBDCSM ---
General - General Admission date:: 11/19/19 Discharge date: 11/20/19 HPI - History of Present Illness History of present illness: She is a 34-year-old 4 now para 4 who was 39 and 6 weeks gestational age. She came in in active labor. Hospital Course Hospital Course: She arrived in active labor and was found to be 4 cm dilated. She progressed to full dilation and delivered spontaneously a liveborn female child at 6:41 AM on the morning of November 19, 2019. Baby was a liveborn female child weighing 7 pounds 7 ounces with Apgars of 8 at 1 minute and 8 at 5 minutes. There were no perineal or vaginal lacerations. She has done well and has remained afebrile throughout her hospitalization. She is eating and drinking and ambulating. She is breast-feeding. She has a positive blood, she is rubella immune and was group B streptococcus negative. Her b2b account executive is Dr. Hauser. She is discharged home to follow-up with me in approximately 2 weeks time. She will continue with her vitamins and iron. She will continue with breast-feeding. She was given the usual instructions with respect to limiting her activity, driving and sexual activity. Her condition on discharge is stable. She was diagnosed with COVID 19 2 weeks ago and was still positive on admission. Rhogam Administration: Not Indicated Objective Vital signs: Temp Pulse Resp BP Pulse Ox 97.7 F 76 18 113/70 97 11/20/19 04:30 11/20/19 04:30 11/20/19 04:30 11/20/19 04:30 11/20/19 04:30 no acute distress - *Routine HEENT Exam Head: Present: normocephalic Eye: Present: EOMI, PERRL ENT: Present: mucous membranes moist Results Labs on day of discharge: Labs from last 24 hours 11/20/19 11/19/19 06:08 05:40 WBC 6.9 RBC 3.26 L Hgb 11.6 L 12.9 Hct 35.4 L 32.7 L MCV 100.1 H MCH 39.4 H MCHC 39.4 H RDW 12.4 Plt Count 197 MPV 8.8 Neut % (Auto) 72.7 Lymph % (Auto) 20.6 Eos % (Auto) 1.1 Baso % (Auto) 0.3 Neut # (Auto) 5.0 Lymph # (Auto) 1.4 [place] # (Auto) 0.4 Baso # (Auto) 0.0 DS: Diagnosis - Discharge Diagnosis (1) Normal delivery at term Status: Acute (2) Lab test positive for detection of COVID-19 virus Status: Acute Discharge Plan - Patient Discharge Instructions ACTIVITY: No heavy lifting DIET: continue same diet Additional Instructions: Nothing in the vagina for 6 weeks No heavy lifting Drink plenty of fluids Patient Instructions: Depression, Hemorrhage, DI for Labor and Delivery, Vaginal , DI for Pre-eclampsia, [facility] Post Discharge Instructions, Preventing the Spread of Coronavirus Discharge Instructions - Follow up Plan Disposition: Home, Self-Halfway Medications: Home Medications Medication Instructions Recorded Confirmed Type docusate sodium 100 mg capsule 100 mg PO DAILY 02/22/17 11/19/19 History vit no.95-ferrous 1 tab PO DAILY 02/22/17 11/19/19 History fumarate 28 mg-folic acid 800 mcg tablet levothyroxine 112 mcg tablet 112 mcg PO DAILY #30 tab 10/17/19 11/19/19 History Ferrous Sulfate 325 mg PO DAILY 11/19/19 11/19/19 History Prescriptions/Medication Reconciliation: Continued vit no.95-ferrous fumarate 28 mg-folic acid 800 mcg tablet 1 tab PO DAILY docusate sodium 100 mg capsule 100 mg PO DAILY levothyroxine 112 mcg tablet 112 mcg PO DAILY #30 tab Ferrous Sulfate 325 mg PO DAILY - Problem Reconciliation Problems Reviewed?: Yes
[2019-11-20 08:43] VITALS: BP 132/73; PULSE 65; RESP 18; TEMP 36.4; O2SAT 98
[2019-11-20 11:58] VITALS: BP 120/79; PULSE 57; RESP 18; TEMP 36.5; O2SAT 98
== END 2019-11-20 15:30 | disposition home or self-care (01) | DRG 805 ==
PROVIDERS: Admitting Provider Nurse Practitioner Obstetrics & Gynecology; PCP Nurse Practitioner Family; Visit Provider Nurse Practitioner Obstetrics & Gynecology
DX: O98.513 Other viral diseases complicating pregnancy, third trimester (principal); U07.1 COVID-19; Z37.0 Single live birth; Z3A.39 39 weeks gestation of pregnancy
CPT/HCPCS: 59409; 59025; 80305; 81001; 82800; 85014; 85018; 85025; 86328; 86850; U0003

== ENCOUNTER → 2020-03-17 08:31 | Outpatient (CLI) | payer BC, SELFPAY ==
[2020-03-17 09:18] LABS: Basophils % 0.6 % (0.1-2.0); Eosinophils # 0.6 K/mm3 (0.0-0.4); Eosinophils % 11.7 % (0.1-12.0); Hematocrit 46.5 % (37.0-47.0); Hemoglobin 14.5 g/dL (12.2-16.2); Lymphocytes % 35.8 % (10-50); Mean Corpuscular HGB Conc 31.2 g/dL (31.8-35.4); Mean Corpuscular Hemoglobin 31.1 pg (27.0-31.2); Mean Corpuscular Volume 99.9 fl (81-99); Mean Platelet Volume 7.4 fl (7.4-10.4); Monocytes # 0.3 K/mm3 (0.1-1.0); Monocytes % 4.6 % (1.7-9.3); Neutrophils # 2.6 K/mm3 (1.8-7.8); Neutrophils % 47.4 % (37.0-80.0); Platelet Count 291 K/mm3 (142-424); Red Blood Count 4.65 M/mm3 (4.20-5.40); Red Cell Distribution Width 13.1 % (11.5-17.5); White Blood Count 5.5 K/mm3 (4.8-10.8)
[2020-03-17 10:26] LABS: Chloride 100 mmol/L (98-107); Potassium 4.5 mmoL/L (3.5-5.1); Sodium 140 mmol/L (136-145)
[2020-03-17 10:28] LABS: Alanine Aminotransferase 15 U/L (12-78); Aspartate Amino Transferase 26 U/L (14-36); Blood Urea Nitrogen 22 mg/dl (7-17); Estimated Glomerular Filt Rate 72 ml/min (>60); GFR (African American) 87 ML/MIN (>60)
[2020-03-17 10:29] LABS: Albumin Level 5.2 g/dl (3.5-5.0); Albumin/Globulin Ratio 1.7 (1.1-1.8); Alkaline Phosphatase 57 U/L (38-126); Anion Gap 14.5 mEq/L (5-15); Bilirubin,Total 0.4 mg/dl (0.2-1.3); Calcium 10.5 mg/dl (8.4-10.2); Carbon Dioxide 30 mmol/L (22.0-30.0); Glucose 89 mg/dl (74-100); Total Protein,Serum 8.2 g/dl (6.3-8.2)
[2020-03-17 10:46] LABS: Free Thyroxine Index 2.7 ug/dL (5.93-13.13); T4 (Thyroxine) 8.5 ug/dl (5.53-11.0); Triiodothryronine (T3) Uptake 32 % (23.5-40.5)
[2020-03-17 11:00] LABS: Thyroid Stimulating Hormone 0.48 uIU/mL (0.465-4.68)
== END ==
PROVIDERS: Visit Provider Internal Medicine Adolescent Medicine
DX: E03.8 Other specified hypothyroidism (principal)
CPT/HCPCS: 36415; 80053; 84436; 84443; 84479; 85025

== ENCOUNTER → 2020-04-21 09:17 | Outpatient (POV) | payer BC, SELFPAY | PROVIDERS: Visit Provider Dermatology | DX: Z00.00 Encounter for general adult medical examination without abnormal findings (principal) ==

== ENCOUNTER → 2020-11-03 10:34 | Outpatient (CLI) | payer BC, SELFPAY | PROVIDERS: PCP Internal Medicine Adolescent Medicine; Visit Provider Nurse Practitioner | DX: Z20.822 Contact with and (suspected) exposure to COVID-19 (principal) | CPT/HCPCS: C9803; U0003; U0005 ==

== ENCOUNTER → 2020-11-05 08:13 | Outpatient (CLI) | payer BC, SELFPAY | PROVIDERS: PCP Internal Medicine Adolescent Medicine; Visit Provider Nurse Practitioner | DX: Z20.822 Contact with and (suspected) exposure to COVID-19 (principal) | CPT/HCPCS: C9803; U0003; U0005 ==

== ENCOUNTER → 2021-03-01 15:49 | Outpatient (CLI) | payer BC, SELFPAY ==
[2021-03-01 16:19] LABS: Basophils % 0.4 % (0.1-2.0); Eosinophils # 0.1 K/mm3 (0.0-0.4); Hematocrit 42.9 % (37.0-47.0); Hemoglobin 13.6 g/dL (12.2-16.2); Lymphocytes # 2.6 K/mm3 (0.7-4.5); Lymphocytes % 39.5 % (10-50); Mean Corpuscular HGB Conc 31.8 g/dL (31.8-35.4); Mean Corpuscular Hemoglobin 31.1 pg (27.0-31.2); Mean Corpuscular Volume 97.9 fl (81-99); Mean Platelet Volume 8.2 fl (7.4-10.4); Monocytes # 0.2 K/mm3 (0.1-1.0); Monocytes % 3.4 % (1.7-9.3); Neutrophils # 3.5 K/mm3 (1.8-7.8); Neutrophils % 54.7 % (37.0-80.0); Platelet Count 336 K/mm3 (142-424); Red Blood Count 4.38 M/mm3 (4.20-5.40); Red Cell Distribution Width 13.3 % (11.5-17.5); White Blood Count 6.5 K/mm3 (4.8-10.8)
[2021-03-01 16:39] LABS: Alanine Aminotransferase 12 U/L (12-78); Albumin Level 4.9 g/dl (3.5-5.0); Albumin/Globulin Ratio 1.9 (1.1-1.8); Alkaline Phosphatase 38 U/L (38-126); Anion Gap 12.3 mEq/L (5-15); Aspartate Amino Transferase 27 U/L (14-36); Bilirubin,Total 0.3 mg/dl (0.2-1.3); Blood Urea Nitrogen 17 mg/dl (7-17); Carbon Dioxide 30 mmol/L (22.0-30.0); Chloride 100 mmol/L (98-107); Estimated Glomerular Filt Rate 95 ml/min (>60); GFR (African American) 115 ML/MIN (>60); Globulin 2.6 g/dL (1.3-3.2); Glucose 96 mg/dl (74-100); Magnesium 1.9 mg/dl (1.6-2.3); Potassium 4.3 mmoL/L (3.5-5.1); Sodium 138 mmol/L (136-145); Total Protein,Serum 7.5 g/dl (6.3-8.2)
[2021-03-01 17:37] LABS: Thyroid Stimulating Hormone 5.12 uIU/mL (0.465-4.68)
== END ==
PROVIDERS: PCP Nurse Practitioner Family; Visit Provider Nurse Practitioner Family
DX: R00.2 Palpitations (principal); E03.8 Other specified hypothyroidism
CPT/HCPCS: 36415; 80053; 83735; 84439; 84443; 85025; 93225; 93226

== ENCOUNTER → 2021-11-30 13:24 | Outpatient (CLI) | payer BC, SELFPAY ==
[2021-11-30 14:25] LABS: Basophils # 0.1 K/mm3 (0-0.2); Basophils % 0.8 % (0.1-2.0); Eosinophils # 0.1 K/mm3 (0.0-0.4); Eosinophils % 1.5 % (0.1-12.0); Hematocrit 42.8 % (37.0-47.0); Hemoglobin 13.6 g/dL (12.2-16.2); Lymphocytes # 2.1 K/mm3 (0.7-4.5); Lymphocytes % 28.1 % (10-50); Mean Corpuscular HGB Conc 31.8 g/dL (31.8-35.4); Mean Corpuscular Hemoglobin 30.9 pg (27.0-31.2); Mean Corpuscular Volume 97.3 fl (81-99); Mean Platelet Volume 7.9 fl (7.4-10.4); Monocytes # 0.3 K/mm3 (0.1-1.0); Monocytes % 3.9 % (1.7-9.3); Neutrophils % 65.6 % (37.0-80.0); Platelet Count 315 K/mm3 (142-424); Red Cell Distribution Width 12.8 % (11.5-17.5); White Blood Count 7.5 K/mm3 (4.8-10.8)
[2021-11-30 14:44] LABS: Urine Pregnancy, HCG Qual. Negative (Negative)
[2021-11-30 14:46] LABS: Chloride 100 mmol/L (98-107); Potassium 4.3 mmoL/L (3.5-5.1); Sodium 141 mmol/L (136-145)
[2021-11-30 14:49] LABS: Blood Urea Nitrogen 12 mg/dl (7-17); Estimated Glomerular Filt Rate 81 ml/min (>60); GFR (African American) 98 ML/MIN (>60)
[2021-11-30 14:50] LABS: Anion Gap 15.3 mEq/L (5-15); Calcium 9.3 mg/dl (8.4-10.2); Carbon Dioxide 30 mmol/L (22.0-30.0); Glucose 112 mg/dl (74-100)
== END ==
PROVIDERS: PCP Nurse Practitioner Family; Visit Provider Surgery
DX: Z01.812 Encounter for preprocedural laboratory examination (principal); Z20.822 Contact with and (suspected) exposure to COVID-19; K42.9 Umbilical hernia without obstruction or gangrene
CPT/HCPCS: 36415; 80048; 81025; 85025; C9803; U0003; U0005

== ENCOUNTER 2021-12-02 06:01 | Day surgery (SDC) | payer BC, SELFPAY ==
[2021-11-29 14:10] VITALS: BMI 19.5
[2021-12-02] VITALS (11 sets, daily range): BP systolic 102–132; BP diastolic 65–84; PULSE 68–90; RESP 12–18; TEMP 36.4–43; O2SAT 97–100
--- NOTE | 2021-12-02 07:50 | P.OP_ITS ---
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 General anesthesia with laryngeal mask airway was achieved. Her abdomen was prepped and draped in a sterile fashion. After infiltration local anesthetic a curvilinear infraumbilical incision was made. The deep subcutaneous tissue was dissected with a combination of sharp dissection, blunt dissection, and electrocautery. A 6 mm defect with a small nodule incarcerated preperitoneal fat was noted. The nodule of preperitoneal fat was carefully excised. The defect was elevated to minimize risk for injury to the underlying tissue. 0 Ethibond was used to complete the repair in an interrupted fashion. 2-0 Vicryl (undyed) was then used to reapproximate the umbilical stump. Skin was closed with 4-0 Monocryl in an interrupted/mattress fashion to facilitate hemostasis. Dressings were applied and the patient was transferred to recovery in stable condition. Condition: stable Disposition: PACU Specimens:: none Complications:: No immediate
--- NOTE | 2021-12-02 07:52 | P.PNANES_ITS ---
[facility] Anesthesia Record Part I Anesthesia Record I Intake, IV Amount: 800 Estimated blood loss (mL): 0 Urine output (mL): 0 Blood Pressure: 124/78 SaO2: 98 Pulse Rate: 83 Respiratory Rate: 12 Temperature: 97.8 F Patient is:: Drowsy and Stable Stable to PACU at:: 07:45
--- NOTE | 2021-12-02 07:52 | P.PN_ITS ---
[facility] Medical History Allergies Anxiety Asthma Bronchitis History of COVID-19 Hypothyroid Palpitations Surgical History History of placement of ear tubes History of surgery Family History Other Hyperlipidemia Hypertension Hypothyroid Social History Smoking Status: Never smoker alcohol intake: never substance use type: denies use current occupational status: employed Travel in the last 8 weeks: None [facility] Anesthesia Checklist Patient Identification Patient Identification: Verbal (Name & ) Structural Data Admitted From: Home Planned Operative Procedure/s: umbilical hernia rpr Consent for Planned Operative Procedure(s) Verified: Yes Additional verifications Anesthesia Reactions: No Hx Blood Transfusions: No Blood Transfusion Reaction: No Airway Assessment C-Spine Mobility Assessed: Yes TMJ Mobility Assessed: Yes Dentition: Good Dentition Neurological Assessment Level of Consciousness: Awake, Alert and Appropriate Anesthesia Plan Anesthesia Risk discussed: Yes Anesthesia Plan: Verified ASA Class: II Anesthesia Type: General
--- NOTE | 2021-12-02 08:15 | SUR.PHASEI ---
0811 called and gave detailed report to Pretty Armstrong RN 0815 transported via stretcher to post op. vital signs stable. denies pain at this time. left in stable condition with Pretty Armstrong RN at bedside.
--- NOTE | 2021-12-02 08:47 | P.PNANES_ITS ---
[facility] Anesthesia Record Part II Anesthesia Record Part II Discharge Time: 08:15 Destination: Surgical Day Care (OP Surgery) PACU nurse assessment reviewed?: Yes Patient Condition:: Good Anesthesia Complications:: None Swallowing reflex intact?: Yes Cyanosis?: No Blood Pressure: 115/65 Pulse Rate: 72 Temperature: 97.5 F Mental Status: Alert & Oriented Pain level:: 0 Nausea and/or vomitting:: None Intake, IV Amount: 0
== END 2021-12-02 08:55 | disposition home or self-care (01) ==
PROVIDERS: PCP Nurse Practitioner Family; Visit Provider Surgery
PROC: (CPT 49587; principal; 2021-12-02 07:30)
DX: K42.0 Umbilical hernia with obstruction, without gangrene (principal); Z79.899 Other long term (current) drug therapy
CPT/HCPCS: 49587; 96374; J2405

== ENCOUNTER → 2021-12-21 14:48 | Outpatient (CLI) | payer BC, SELFPAY | PROVIDERS: PCP Internal Medicine Adolescent Medicine; Visit Provider Internal Medicine Adolescent Medicine | DX: R00.2 Palpitations (principal); E06.3 Autoimmune thyroiditis | CPT/HCPCS: 93270 ==

== ENCOUNTER → 2022-08-02 13:23 | Outpatient (CLI) | payer BC, OTHER, SELFPAY ==
--- NOTE | 2022-08-02 13:26 | MM_ITS ---
PROCEDURE INFORMATION: Exam: MG Bilateral Diagnostic Breast Tomosynthesis Exam date and time: 08/02/2022 1:18 PM Age: 37 years old Clinical indication: Screening examination . Patient reports tenderness over an area of prior biopsied mass. By report, the biopsy was benign. TECHNIQUE: Imaging protocol: Bilateral Diagnostic tomosynthesis and 2D mammography including computer-aided detection (CAD) when performed. Unilateral or bilateral exam. COMPARISON: 1. BR US BREAST-RT COMPLETE W/AXILLA 09/01/2014 2:44 PM 2. BR US BREAST-RT 06/26/2012 7:54 AM FINDINGS: MAMMOGRAPHY: The breasts are heterogeneously dense, which may obscure small masses. There is no stellate mass, architectural distortion or suspicious microcalcifications in either breast to suggest malignancy. A skin marker was placed over the patient's complaint of focal tenderness in the area of prior benign biopsy. A lobulated approximately 2.5 x 2.3 cm mass is noted with a clip along the posterior margin of the mass. Prior sonography dated 09/01/2014 labels a partially circumscribed heterogeneous hypoechoic solid mass in the 1 o'clock axis near the nipple. This does not correlate with the mammographic finding or the skin marker which places the previously biopsied mass in the upper outer quadrant. It is likely the prior images are mislabeled since an earlier sonogram dated 06/26/2022 demonstrates a similar lesion but located in the 10 o'clock axis near the nipple and labeled palpable area. At that time the mass measured 2.4 x 2.2 cm in dimension appears grossly stable compared to the current mass noted on mammography. No skin thickening or axillary adenopathy. IMPRESSION: Patient to return for right breast ultrasound for full evaluation of the patient's complaint of focal pain at the prior biopsy site as well as to reassess the dimensions of the mass ASSESSMENT: BI-RADS Category 0: Incomplete- Need Additional Imaging Evaluation and/or Prior Mammograms for Comparison
== END ==
PROVIDERS: PCP Internal Medicine Adolescent Medicine; Visit Provider Internal Medicine Adolescent Medicine
DX: Z12.31 Encounter for screening mammogram for malignant neoplasm of breast (principal); N64.4 Mastodynia
CPT/HCPCS: 77063; 77067

== ENCOUNTER → 2022-08-23 14:52 | Outpatient (CLI) | payer BC, OTHER, SELFPAY ==
--- NOTE | 2022-08-23 14:57 | US_ITS ---
PROCEDURE INFORMATION: Exam: US Right Breast, Complete Exam date and time: 08/23/2022 3:11 PM Age: 37 years old Clinical indication: Breast pain; Right TECHNIQUE: Imaging protocol: Complete ultrasound of all four quadrants of the right breast and the retroareolar regions, including ultrasound of the axilla when performed. COMPARISON: BR US BREAST-RT COMPLETE W/AXILLA 09/01/2014 2:44 PM FINDINGS: Sonographic images of the right 10 o'clock axis 2 cm from the nipple demonstrates an ovoid hypoechoic solid mass measuring 0.8 x 0.5 x 1.1 cm in dimension. This does not appear to be the site of prior biopsy. This is the area where the patient reports focal tenderness. This may reflect a focal fibroadenoma. The previously biopsied mass seen on mammography in the right upper outer quadrant containing a clip and measuring approximately 2.4 cm in greatest dimension is not documented on the most recent sonogram. Superficial hypoechoic mass in the right upper outer quadrant 4 cm from the nipple measuring 0.8 x 0.8 x 0.3 cm in dimension, unchanged compared to prior ultrasound. No axillary adenopathy. IMPRESSION: Indeterminate solid mass at the site focal tenderness in the right upper outer quadrant. The finding is not well seen on mammography. Ultrasound-guided core biopsy is recommended for further evaluation. ASSESSMENT: BI-RADS Category 4: Suspicious
== END ==
PROVIDERS: PCP Internal Medicine Adolescent Medicine; Visit Provider Internal Medicine Adolescent Medicine
DX: R92.8 Other abnormal and inconclusive findings on diagnostic imaging of breast (principal)
CPT/HCPCS: 76641

== ENCOUNTER → 2022-09-15 09:43 | Outpatient (CLI) | payer BC, OTHER, SELFPAY ==
--- NOTE | 2022-09-15 09:48 | US_ITS ---
FINAL REPORT CLINICAL HISTORY: RIGHT BREAST BIOSPY 10:[address] Pawan Colvin FINDINGS: ULTRASOUND-GUIDED RIGHT BREAST CORE BIOPSY TECHNIQUE: Limited images were obtained to localize region of interest. The right breast was prepped in a routine sterile fashion and locally anesthetized with 1% lidocaine. Standard written informed consent was obtained. The biopsy needle was positioned within the outer periphery of the lesion. A total of 3 passes were made with a 18 gauge core biopsy needle. A biopsy marker clip was deployed in satisfactory position. Postbiopsy mammogram showed postbiopsy changes with clip in satisfactory position. Procedure was well tolerated . CONCLUSION: 1. Technically successful ultrasound guided core biopsy of right breast lesion as above. 2. Biopsy marker clip deployed Authenticated and ERN
--- NOTE | 2022-09-15 09:49 | MM_ITS ---
FINAL REPORT CLINICAL HISTORY: s/p rt breast bx, clip placement FINDINGS: MAMMOGRAM RIGHT TECHNIQUE: Standard digital 2-D views COMPARISON: 08-23-22 DENSITY: There are scattered areas of fibroglandular density FINDINGS: Post biopsy marker clip is noted to be in satisfactory position. Postbiopsy changes are noted. IMPRESSION: Biopsy marker clip in good position RECOMMENDATION: Pending histopathology evaluation Authenticated and ERN
== END ==
PROVIDERS: PCP Internal Medicine Adolescent Medicine; Visit Provider Internal Medicine Adolescent Medicine
DX: N63.11 Unspecified lump in the right breast, upper outer quadrant (principal)
CPT/HCPCS: 19083; 77065

== ENCOUNTER → 2023-01-10 08:09 | Outpatient (CLI) | payer BC, OTHER, SELFPAY ==
[2023-01-10 08:27] LABS: Basophils % 0.5 % (0.1-2.0); Eosinophils # 0.1 K/mm3 (0.0-0.4); Eosinophils % 2.8 % (0.1-12.0); Hematocrit 40.7 % (37.0-47.0); Hemoglobin 13.3 g/dL (12.2-16.2); Lymphocytes # 1.7 K/mm3 (0.7-4.5); Lymphocytes % 46.1 % (10-50); Mean Corpuscular HGB Conc 32.7 g/dL (31.8-35.4); Mean Corpuscular Hemoglobin 31.2 pg (27.0-31.2); Mean Corpuscular Volume 95.4 fl (81-99); Mean Platelet Volume 7.8 fl (7.4-10.4); Monocytes # 0.2 K/mm3 (0.1-1.0); Neutrophils # 1.6 K/mm3 (1.8-7.8); Neutrophils % 44.6 % (37.0-80.0); Platelet Count 330 K/mm3 (142-424); Red Blood Count 4.27 M/mm3 (4.20-5.40); Red Cell Distribution Width 13.5 % (11.5-17.5); White Blood Count 3.7 K/mm3 (4.8-10.8)
[2023-01-10 08:42] LABS: Chloride 102 mmol/L (98-107); Potassium 4.3 mmoL/L (3.5-5.1); Sodium 140 mmol/L (136-145)
[2023-01-10 08:45] LABS: Anion Gap 12.3 mEq/L (5-15); Blood Urea Nitrogen 25 mg/dl (7-17); Carbon Dioxide 30 mmol/L (22.0-30.0); Estimated Glomerular Filt Rate 70 ml/min (>60); GFR (African American) 85 ML/MIN (>60)
[2023-01-10 08:46] LABS: Calcium 9.3 mg/dl (8.4-10.2); Glucose 64 mg/dl (74-100)
== END ==
PROVIDERS: PCP Internal Medicine Adolescent Medicine; Visit Provider Student in an Organized Health Care Education/Training Program
DX: Z01.818 Encounter for other preprocedural examination (principal)
CPT/HCPCS: 36415; 80048; 85025

== ENCOUNTER → 2023-01-19 10:02 | Outpatient (CLI) | payer BC, OTHER, SELFPAY ==
--- NOTE | 2023-01-19 10:10 | MM_ITS ---
PROCEDURE INFORMATION: Exam: MG Right Diagnostic Breast Tomosynthesis Exam date and time: 01/19/2023 10:04 AM Age: 37 years old Clinical indication: Short-term radiographic followup; Right breast; benign biopsy TECHNIQUE: Imaging protocol: Right Diagnostic tomosynthesis and 2D mammography including computer-aided detection (CAD) when performed. Unilateral or bilateral exam. COMPARISON: 1. MG MM CLIP PLACEMENT RT 09/15/2022 11:08 AM 2. MG MM DIG SCREENING MAMM BI W/CAD 08/02/2022 1:18 PM FINDINGS: MAMMOGRAPHY: The breast is heterogeneously dense, which may obscure small masses. There is no stellate mass, architectural distortion or suspicious microcalcifications to suggest malignancy. Additional spot compression views over the prior biopsy site in the upper outer quadrant do not demonstrate any suspicious findings . No skin thickening or axillary adenopathy. IMPRESSION: No mammographic evidence of malignancy. Annual bilateral mammographic screening is recommended to commence at the age of 40 unless otherwise clinically indicated. ASSESSMENT: BI-RADS Category 1: Negative
== END ==
PROVIDERS: PCP Internal Medicine Adolescent Medicine; Visit Provider Internal Medicine Adolescent Medicine
DX: R92.8 Other abnormal and inconclusive findings on diagnostic imaging of breast (principal)
CPT/HCPCS: 77061; 77065; G0279

== ENCOUNTER 2023-02-25 11:17 | Outpatient (CLI) | payer BC, OTHER, SELFPAY ==
[2023-02-25 13:32] LABS: Chloride 102 mmol/L (98-107); Potassium 4.8 mmoL/L (3.5-5.1); Sodium 139 mmol/L (136-145)
[2023-02-25 13:35] LABS: Alanine Aminotransferase 17 U/L (12-78); Albumin Level 4.5 g/dl (3.5-5.0); Albumin/Globulin Ratio 1.6 (1.1-1.8); Alkaline Phosphatase 43 U/L (38-126); Anion Gap 14.8 mEq/L (5-15); Aspartate Amino Transferase 26 U/L (14-36); Bilirubin,Total 0.4 mg/dl (0.2-1.3); Blood Urea Nitrogen 18 mg/dl (7-17); Calcium 9.4 mg/dl (8.4-10.2); Carbon Dioxide 27 mmol/L (22.0-30.0); Estimated Glomerular Filt Rate 94 ml/min (>60); GFR (African American) 114 ML/MIN (>60); Globulin 2.9 g/dL (1.3-3.2); Glucose 91 mg/dl (74-100); Total Protein,Serum 7.4 g/dl (6.3-8.2)
[2023-02-25 13:52] LABS: Free T4 (Free Thyroxine) 1.37 ng/dl (0.78-2.19)
[2023-02-25 14:07] LABS: Thyroid Stimulating Hormone 4.55 uIU/mL (0.465-4.68)
[2023-02-25 22:16] LABS: Hemoglobin 12.3 g/dL (12.2-16.2)
[2023-02-25 22:17] LABS: Hematocrit 38.6 % (37.0-47.0); Mean Corpuscular HGB Conc 31.9 g/dL (31.8-35.4); Mean Corpuscular Hemoglobin 29.3 pg (27.0-31.2); Mean Corpuscular Volume 91.9 fl (81-99); Mean Platelet Volume 10.3 fl (7.4-10.4); Platelet Count 341 K/mm3 (142-424); Red Cell Distribution Width 14.2 % (11.5-17.5)
[2023-02-25 22:18] LABS: White Blood Count 6.1 K/mm3 (4.8-10.8)
== END 2023-02-25 23:59 ==
LOC: LAB 11:18
PROVIDERS: PCP Nurse Practitioner Family; Visit Provider Nurse Practitioner Family
DX: E03.8 Other specified hypothyroidism (principal); R00.2 Palpitations; R42 Dizziness and giddiness
CPT/HCPCS: 36415; 80053; 82533; 84439; 84443; 85025

== ENCOUNTER 2023-10-20 14:42 | Outpatient (CLI) | payer BC, OTHER, SELFPAY ==
[2023-10-20 15:17] LABS: Basophils % 0.6 % (0.1-2.0); Eosinophils # 0.1 K/mm3 (0.0-0.4); Eosinophils % 1.5 % (0.1-12.0); Hemoglobin 12.5 g/dL (12.2-16.2); Lymphocytes # 2.3 K/mm3 (0.7-4.5); Lymphocytes % 34.2 % (10-50); Mean Corpuscular HGB Conc 31.3 g/dL (31.8-35.4); Mean Corpuscular Hemoglobin 29.6 pg (27.0-31.2); Mean Corpuscular Volume 94.3 fl (81-99); Mean Platelet Volume 8.1 fl (7.4-10.4); Monocytes # 0.3 K/mm3 (0.1-1.0); Monocytes % 4.7 % (1.7-9.3); Neutrophils # 3.9 K/mm3 (1.8-7.8); Platelet Count 323 K/mm3 (142-424); Red Blood Count 4.24 M/mm3 (4.20-5.40); Red Cell Distribution Width 14.7 % (11.5-17.5); White Blood Count 6.7 K/mm3 (4.8-10.8)
[2023-10-20 15:32] LABS: Albumin Level 4.8 g/dl (3.5-5.0); Chloride 104 mmol/L (98-107); Sodium 136 mmol/L (136-145)
[2023-10-20 15:33] LABS: Potassium 4.2 mmoL/L (3.5-5.1)
[2023-10-20 15:35] LABS: Alanine Aminotransferase 16 U/L (12-78); Albumin/Globulin Ratio 1.8 (1.1-1.8); Alkaline Phosphatase 47 U/L (38-126); Anion Gap 12.2 mEq/L (5-15); Aspartate Amino Transferase 25 U/L (14-36); Bilirubin,Total 0.4 mg/dl (0.2-1.3); Blood Urea Nitrogen 23 mg/dl (7-17); Carbon Dioxide 24 mmol/L (22.0-30.0); Cholesterol 213 mg/dl (140-200); Globulin 2.7 g/dL (1.3-3.2); Total Protein,Serum 7.5 g/dl (6.3-8.2); Triglycerides 126 mg/dl (30-150); VLDL Cholesterol 25 mg/dL (0-40)
[2023-10-20 15:36] LABS: Calcium 9.6 mg/dl (8.4-10.2); Chol/HDL Ratio 2.2 (1-3.5); Glucose 119 mg/dl (74-100); HDL Cholesterol 97 mg/dl (40-60)
[2023-10-20 15:42] LABS: Estimated Glomerular Filt Rate 36 ml/min (>60); GFR (African American) 44 ML/MIN (>60)
[2023-10-20 15:47] LABS: Direct LDL Cholesterol 81.07 mg/dL (100-129)
[2023-10-20 16:06] LABS: Thyroid Stimulating Hormone 3.19 uIU/mL (0.465-4.68)
[2023-10-20 16:20] LABS: 25-OH Vitamin D, Total 47.8 ng/mL (30-100)
[2023-10-22 09:25] LABS: FSH 3.7 mIU/mL (.); LH 8.1 mIU/mL (.)
== END 2023-10-20 23:59 | disposition home or self-care (01) ==
LOC: LAB 14:44
PROVIDERS: PCP Internal Medicine Adolescent Medicine; Visit Provider Nurse Practitioner Family
DX: Z00.00 Encounter for general adult medical examination without abnormal findings (principal); E06.3 Autoimmune thyroiditis
CPT/HCPCS: 36415; 80050; 80053; 80061; 82306; 82670; 83001; 83002; 84443; 85025